=== PATIENT | female | born 1985 | race African-American/Black ===

== ENCOUNTER 2017-01-29 19:21 | Inpatient (IN) | payer OTHER ==
[~2017-01-29] VITALS: Ht 167.6 cm; Wt 85.6 kg
[~2017-01-29 19:21] MED LIST: ALPRAZOLAM0.5 MG PO; CEPHALEXIN500 MG PO; CVS IRON PO; CYMBALTA30 MG PO; IBUPROFEN800 MG PO; KEFLEX500 MG PO; LORTAB 5-325 M1 EACH PO; NAPROSYN500 MG PO; NOHOMEMEDS; Vicodin,Lortab 5/500 PO
[2017-01-29 20:19] LABS: HEMATOCRIT 25.8 % (36.0-46.0); MCHC 30.2 G/DL (30.0-36.0); MCV 69.4 FL (83-99); MEAN PLAT.VOLUME 9.7 uM^3 (9.5-12.4); PLATELET COUNT 315 K/uL (156-360); RBC DIS.WIDTH-CV 19.4 % (11.8-14.6); RBC DIS.WIDTH-SD 47.6 % (39-53); RED BLOOD COUNT 3.72 M/uL (3.80-5.20); WHITE BLOOD COUNT 6.5 K/uL (4.1-10.2)
[2017-01-29 20:23] LABS: CHLORIDE 111 mEq/L (99-109); POTASSIUM 3.4 mEq/L (3.7-5.4); SODIUM 141 mEq/L (136-147)
[2017-01-29 20:25] LABS: GLUCOSE 96 mg/dL (70-99)
[2017-01-29 20:27] LABS: ANION GAP 7 MEQ/L (2-14); TOTAL BILIRUBIN 0.2 mg/dL (0.0-1.0)
[2017-01-29 20:28] LABS: SERUM ETHYL ALCOHOL < 10 mg/dL
[2017-01-29 20:29] LABS: ALKALINE PHOSPHATASE 70 IU/L (3-129); GFR ESTIMATE (CALCULATED) > 59 mL/min/
[2017-01-29 20:30] LABS: UREA NITROGEN (BUN) 10 mg/dL (9-23)
[2017-01-29 23:04] LABS: SALICYLATE < 5.0 MG/DL (15-30)
[2017-01-30 05:12] LABS: ADD MIUA? YES; BILIRUBIN NEGATIVE; BLOOD NEGATIVE; COLOR YELLOW ((YELLOW)); GLUCOSE (STRIP) NEGATIVE; KETONES NEGATIVE; LEUKOCYTES NEGATIVE; NITRITE NEGATIVE; PROTEIN (STRIP) 30; SPECIFIC GRAVITY 1.015 (1.000-1.030); UROBILINOGEN 0.2 MG/DL (0.2-1.0)
[2017-01-30 05:23] LABS: QUANTITATIVE HCG < 4.0 MIU/ML
[2017-01-30 05:57] LABS: BACTERIA RARE /HPF; EPITHELIAL CELLS 3+ /HPF; MUCUS TRACE /LPF; RED BLOOD CELLS 0-5 /HPF (0-5); WHITE BLOOD CELLS 0-5 /HPF (0-5)
[2017-01-30 06:09] LABS: COCAINE NEGATIVE (150 ng/mL); METHAMPHETAMINE NEGATIVE (500 ng/mL); OPIATES (MORPHINE) NEGATIVE (100 ng/mL); PHENCYCLIDINE NEGATIVE (25 ng/mL); THC CANNABINOIDS NEGATIVE (50 ng/mL)
[2017-01-30 06:10] LABS: ADD MEDTOX COMMENT Y; AMPHETAMINE NEGATIVE (500 ng/mL); BARBITURATES NEGATIVE (200 ng/mL); BENZODIAZEPINES PRESUMPTIVE POSITIVE (150 ng/mL); INTERNAL CONTROLS VALID? YES; METHADONE NEGATIVE (200 ng/mL); OXYCODONE PRESUMPTIVE POSITIVE (100 ng/mL); PROPOXYPHENE NEGATIVE (300 ng/mL); TRICYCLIC ANTIDEPRESSANTS NEGATIVE (300 ng/mL)
[2017-01-30 06:48] LABS: BENZODIAZEPINES, URINE SCREEN POSITIVE (200 ng/mL)
[2017-01-30 16:05] VITALS: BP 140/90
[2017-01-31 07:43] VITALS: BP 148/82
[2017-01-31 15:52] VITALS: BP 146/85
[2017-01-31 19:25] VITALS: BP 148/91
[2017-02-01 07:26] VITALS: BP 143/86
[2017-02-01] MEDS ORDERED: CITALOPRAM HBR10 MG PO (10:14)
== END 2017-02-01 12:33 | disposition home or self-care (01) | DRG 885 ==
LOC: EME → EDBD 19:21 → EDOF 01-30 12:42 → 1WEST 01-30 12:42
PROVIDERS: Emergency Medicine
DX: F33.1 Major depressive disorder, recurrent, moderate (principal); R45.851 Suicidal ideations
CPT/HCPCS: 80053; 81003; 84443; 84702; 84999; 85027; 90837; 93005; 97150 GO; 97165 GO; 99281; 99285; G0480; J1630; J2060; Q0177